=== PATIENT | female | born 1940 | race Caucasian/White ===

== ENCOUNTER 2019-09-16 20:27 | Emergency (ER) | payer MEDICARE, OTHER, SELFPAY ==
[2019-09-16 20:36] VITALS: BP 163/90; PULSE 74; RESP 18; TEMP 37.2; O2SAT 96; BMI 33.0
--- NOTE | 2019-09-16 20:43 | XRR_ITS ---
PROCEDURE INFORMATION: Exam: XR Chest, 1 View Exam date and time: 09/16/2019 9:19 PM Age: 79 years old Clinical indication: Cough; Chest pain TECHNIQUE: Imaging protocol: XR of the chest Views: 1 view. COMPARISON: CR Chest 2 views* [id number] 03/03/2019 3:25 PM FINDINGS: Lungs: There is right basilar airspace disease. Pleural space: No pleural effusion or pneumothorax. Heart/Mediastinum: The cardiac silhouette is not enlarged. The mediastinal contours are normal. Bones/joints: There are multilevel bridging osteophytes in the spine. XR/XR chest 1V portable [id number] IMPRESSION: Right basilar airspace disease. Consider pneumonia or aspiration pneumonitis.
--- NOTE | 2019-09-16 20:44 | ECG_ITS ---
Measurements Intervals Siren Rate: 62 P: 52 OK: 150 QRS: -34 QRSD: 128 T: 80 QT: 467 QTc: 476 SINUS RHYTHM LEFT AXIS DEVIATION [QRS AXIS < -30] LEFT BUNDLE BRANCH BLOCK [120+ ms QRS DURATION, 80+ ms Q/S IN V1/V2, 85+ ms R I/aVL/V5/V6] No previous ECG available for comparison Electronically Signed On 09-17-2019 10:02:09 CDT by Kirk Schrader M.D. [email or web address]
--- NOTE | 2019-09-16 20:48 | USR_ITS ---
PROCEDURE INFORMATION: Exam: US Duplex Bilateral Extracranial Arteries Exam date and time: 09/16/2019 9:40 PM Age: 79 years old Clinical indication: Left neck pain TECHNIQUE: Imaging protocol: Real-time Duplex ultrasound scan of the bilateral carotid and vertebral arteries combining matos scale, color Doppler and spectral waveform analysis. Bilateral exam. COMPARISON: No relevant prior studies available. FINDINGS: Right common carotid artery: PSV = 71.7 cm/sec. No occlusion or significant stenosis. Waveforms are normal. Right internal carotid artery: PSV = 84.6 cm/sec. No occlusion or significant stenosis. Waveforms are normal. Right ICA/CCA ratio: Within normal limits. Right external carotid artery: PSV = 92.6 cm/sec. No significant stenosis in the origin. Right vertebral artery: PSV = 43.6 cm/sec. Antegrade flow. Left common carotid artery: PSV = 72.7 cm/sec. No occlusion or significant stenosis. Waveforms are normal. Left internal carotid artery: PSV = 85.8 cm/sec. No occlusion or significant stenosis. Waveforms are normal. Left ICA/CCA ratio: Within normal limits. Left external carotid artery: PSV = 68.3 cm/sec. No significant stenosis in the origin. Left vertebral artery: PSV = 42.2 cm/sec. Antegrade flow. US/CV carotid duplex BI* [id number] IMPRESSION: No significant carotid arterial stenosis. REFERENCES: SRU CRITERIA. The degree of internal carotid artery stenosis is based on criteria defined by the Society of Radiologists in Ultrasound (SRU). Normal is no stenosis. Mild is less than 50% stenosis. Moderate is 50-69% stenosis. Severe is greater than 69% stenosis to near occlusion. Near occlusion is a markedly narrowed lumen. Total occlusion is no detectable patent lumen.
--- NOTE | 2019-09-16 20:56 | ED_ITS ---
HPI - General Adult General: Chief complaint: General Medical Stated complaint: diaphoresis Time Seen by Provider: 09/16/19 20:43 History of Present Illness: HPI narrative: Yareli is a nice 79-year-old female who comes in complaining of right ear and right neck pain. She describes the pain as sharp and intermittent lasting only a few seconds. Her ear is not some much pain as is occasional ringing. She is concerned that she may have earwax buildup in her ear. She denies any fever, headache, worsening with range of motion. Very importantly she denies any chest pain, shortness of breath, arm or heaviness or weakness. Patient states she is overall very healthy but was concerned about the arteries in her neck that is what prompted her to come to the [facility] for evaluation. Associated symptoms: Deny chest pain, confusion, diaphoresis, dyspnea, headache(s), malaise, nausea, rash, palpitations, syncope or vomiting Review of Systems General: Reports: other (negative unless marked) Const: Denies: fever, chills, body aches, fatigue, malaise or diaphoresis Eyes: Denies: change in vision or blurry vision ENMT: Reports: ear pain; Denies: throat pain, painful swallowing, hoarseness, ear discharge, Change in hearing or nasal discharge Card: Denies: chest pain, palpitations, irregular heart rhythm, syncope, pre- syncope, shortness of breath on exertion or shortness of breath when lying down Resp: Denies: shortness of breath, productive cough, non-productive cough, wheezing, coughing up blood or chest congestion GI: Denies: abdominal pain, nausea, vomiting, vomiting blood, coffee grounds in vomit, diarrhea, constipation, cramping, blood in stool or black tarry stool : Denies: flank pain, painful urination, urinary frequency, urinary urgency, decreased urine ouput, urinary incontinence or blood in urine Musc: Denies: neck pain, back pain, extremity pain, extremity swelling, joint pain, joint swelling, joint warmth or joint stiffness Skin/Breast: Denies: rash, skin tenderness or yellow skin Neuro: Denies: headache, numbness in extremities, weakness in extremities, changes in sensation, lack of coordination, difficulty walking, dizziness, vertigo or confusion Endo: Denies: excessive thirst, tired all the time, cold intolerance, excessive sweating, flushing or hot flashes Remy/Lymph: Denies: easy bruising, easy bleeding, petechiae or enlarged lymph nodes All/Imm: Denies: hives, throat swelling, tongue swelling, facial swelling or acute wheezing PFSH ED PFSH: Medical History (Updated 09/16/19 @ 22:49 by Ariella Lawson) Asthma Social History Smoking and tobacco status: never smoked Physical Exam Const: COMMON NORMALS: no apparent distress, oriented x3, no limitations, healthy appearing and well nourished EXAM LIMITATIONS: no altered mental st atus GENERAL APPEARANCE: cooperative, well kempt and well developed ORIENTATION/CONSCIOUSNESS: Yes awake HENMT: COMMON NORMALS: normocephalic, head/scalp atraumatic, hearing grossly normal bilaterally, external ears normal, EAC's normal, external nose normal and moist oral mucous membranes HEAD & SCALP: normal to inspection, normocephalic and atraumatic FACE & SINUS: normal facial exam and face symmetric NOSE: external nose normal and nares normal EXTERNAL EAR: Yes external ears normal EXTERNAL AUDITORY CANAL: EAC's normal MOUTH: oral and palatal mucosa normal and tongue normal Eye: COMMON NORMALS: PERRL, EOMs intact bilaterally, conjunctivae normal and no scleral icterus GENERAL EYE: normal appearance of both eyes and normal light reflex CONJUNCTIVA: Yes conjunctivae normal SCLERA: sclerae normal CORNEA: Yes corneas normal PUPIL: Yes PERRL DIRECT OPHTHALMOSCOPY: Yes normal light reflex Neck/C-Spine: COMMON NORMALS: full ROM, no lymphadenopathy, supple, no meningeal signs and no JVD GENERAL: Yes normal visual inspection and Yes trachea midline CERVICAL SPINE: Yes cervical ROM normal Chest: COMMONS NORMALS: inspection of chest normal and palpation of chest normal Resp: COMMON NORMALS: normal respiratory effort, no retractions, no use of accessory muscles and clear to auscultation bilaterally EFFORT & INSPECTION: Yes able to speak in complete sentences AUSCULTATION: clear to auscultation bilaterally Cardio: COMMON NORMALS: no JVD, regular rate, regular rhythm, S1 normal heart sound, S2 normal heart sound, no gallops, no clicks, no murmurs and no rub JUGULAR VENOUS DISTENTION: no JVD RATE: regular rate RHYTHM: regular rhythm HEART SOUNDS: S1 normal and S2 normal GI: COMMON NORMALS: soft to palpation, non-tender, no hepatosplenomegaly and no masses INSPECTION: Yes normal to inspection PALPATION: Yes soft and Yes no hepatosplenomegaly : COMMON NORMALS: Yes no CVA tenderness BLADDER/KIDNEY EXAM: Yes no CVA tenderness Back/Pelvis: COMMON NORMALS: no CVA tenderness, thoracic and lumbar spine normal to inspection, no thoracic nor lumbar tenderness and thoraco-lumbar ROM normal Extremity: COMMON NORMALS: normal to inspection, full ROM, normal capillary refill, no joint enlargement, no clubbing, cyanosis or edema and no calf tenderness Neuro: COMMON NORMALS: oriented x3, CN's II-XII intact bilaterally, moves all extremities, no focal motor deficits and no sensory deficits noted MENINGEAL SIGNS: Yes no meningeal signs Psych: COMMON NORMALS: mental status grossly normal, thought process normal, cooperative, affect normal, speech normal and activity/motor behavior normal APPEARANCE: Yes well kempt SPEECH: Yes normal speech THOUGHT PROCESS: normal thought process Skin: COMMON NORMALS: no rashes or lesions noted, skin turgor normal, no jaundice, no petechiae and no mottling GENERAL SKIN EXAM: no rashes or lesions noted and turgor normal Course Vital Signs: Vital signs: Vital Signs Temperature 99 F 09/16/19 20:36 Pulse Rate 68 09/16/19 22:55 Respiratory Rate 18 09/16/19 22:55 Blood Pressure 110/88 09/16/19 22:55 Pulse Oximetry 97 09/16/19 22:55 MDM - General Adult MDM Narrative: Medical decision making narrative: The patient declines any further evaluation and care. She specifically wanted an ultrasound of her neck after she googled her symptoms. Her ultrasound of her carotids is normal. Please see the formal report. I see no sign of acute coronary syndrome, aortic dissection, carotid dissection, pulmonary embolism or otherwise. The patient agrees to return should her symptoms change or worsen but at this time she is feeling better and requests discharge. The patient's chest x-ray does suggest a right lower lobe infiltrate although she has no cough or white count I will cover her empirically with Levaquin. She agrees to follow-up with Dr. Neely for recheck. Lab Data: Attestation: I reviewed the patient's lab results. Labs: Lab Results 09/16/19 09/16/1909/15/20 Range/Units 21:05 21:05 21:05 WBC 9.3 (4.0-10.0) 10^3/ uL RBC 4.20 (4.1-5.3) 10^6/u L Hgb 12.8 (11.5-15.3) g/dL Hct 39.4 (37.0-47.0) % MCV 93.8 (81-99) fL MCH 30.5 (28.0-34.0) pg MCHC 32.5 (30.0-36.0) g/dL RDW 13.9 (12.1-15.1) % Plt Count 168 (130-400) 10^3/c mm MPV 11.7 H (7.4-10.4) fL Neut % (Auto) 72.3 % Lymph % (Auto) 20.6 % [place] % (Auto) 4.8 % Eos % (Auto) 1.7 % Baso % (Auto) 0.4 % Neut # (Auto) 6.8 (1.8-7.7) 10^3/u L Lymph # (Auto) 1.9 (0.8-4.8) 10^3/u L [place] # (Auto) 0.5 (0.2-0.9) 10^3/u L Eos # (Auto) 0.2 (0.0-0.8) 10^3/u L Baso # (Auto) 0.0 (0.0-0.1) 10^3/u L Nucleated RBC % (a uto) 0 % Nucleated RBCs # 0.0 /100WBC Sodium 138 (136-145) mmol/L Potassium 4.3 (3.5-5.1) mmol/L Chloride 101 (98-107) mmol/L Carbon Dioxide 22 (22-29) mmol/L Anion Gap 19.3 H (5-19) BUN 13 (8-23) mg/dL Creatinine 1.0 H (0.5-0.9) mg/dL Glucose 123 H (65-115) mg/dL Calculated Osmolal ity 284 L (285-295) mOsm/k g Calcium 10.1 (8.5-10.5) mg/dL Magnesium 2.2 (1.7-2.3) mg/dL Total Bilirubin 0.6 (0.15-1.2) mg/dL AST 27 (0-32) U/L ALT 21 (0-33) U/L Alkaline Phosphata se 53 (35-105) IU/L Troponin T Baselin e 11 H (0-10) ng/mL Troponin T 120 Min uzma (0-10) ng/mL Delta Troponin T (0-10) ABS# Total Protein 8.3 (6.6-8.7) g/dL Albumin 5.3 H (3.5-5.2) g/dL Globulin 3.0 (1.3-4.6) g/dL TSH 2.68 (0.27-4.20) uIU/ mL Urine Color (Yellow) Urine Appearance (CLEAR) Urine pH (5-7) Ur Specific Gravit y (1.005-1.030) Urine Protein (Negative) Urine Glucose (UA) (Normal) Urine Ketones (Negative) Urine Blood (Negative) Urine Nitrate (Negative) Urine Bilirubin (NEGATIVE) Urine Urobilinogen (Negative) mg/dL Ur Leukocyte Latanya ase (Negative) Urine RBC (0-2) /hpf Urine WBC (0-5) /hpf Ur Squamous Epith Cells (0-5) Urine Bacteria (NONE) Urine Mucus Influenza Type A A g (Negative) Influenza Type B A g (Negative) 09/16/19 09/16/19 09/16/19 Range/Units 21:05 21:40 22:15 WBC (4.0-10.0) 10^3/ uL RBC (4.1-5.3) 10^6/u L Hgb (11.5-15.3) g/dL Hct (37.0-47.0) % MCV (81-99) fL MCH (28.0-34.0) pg MCHC (30.0-36.0) g/dL RDW (12.1-15.1) % Plt Count (130-400) 10^3/c mm MPV (7.4-10.4) fL Neut % (Auto) % Lymph % (Auto) % Concordia % (Auto) % Eos % (Auto) % Baso % (Auto) % Neut # (Auto) (1.8-7.7) 10^3/u L Lymph # (Auto) (0.8-4.8) 10^3/u L Concordia # (Auto) (0.2-0.9) 10^3/u L Eos # (Auto) (0.0-0.8) 10^3/u L Baso # (Auto) (0.0-0.1) 10^3/u L Nucleated RBC % (a uto) % Nucleated RBCs # /100WBC Sodium (136-145) mmol/L Potassium (3.5-5.1) mmol/L Chloride (98-107) mmol/L Carbon Dioxide (22-29) mmol/L Anion Gap (5-19) BUN (8-23) mg/dL Creatinine (0.5-0.9) mg/dL Glucose (65-115) mg/dL Calculated Osmolal ity (285-295) mOsm/k g Calcium (8.5-10.5) mg/dL Magnesium (1.7-2.3) mg/dL Total Bilirubin (0.15-1.2) mg/dL AST (0-32) U/L ALT (0-33) U/L Alkaline Phosphata se (35-105) IU/L Troponin T Baselin e (0-10) ng/mL Troponin T 120 Min uzma 11.81 H (0-10) ng/mL Delta Troponin T 0.81 (0-10) ABS# Total Protein (6.6-8.7) g/dL Albumin (3.5-5.2) g/dL Globulin (1.3-4.6) g/dL TSH (0.27-4.20) uIU/ mL Urine Color Yellow (Yellow) Urine Appearance Sl hazy (CLEAR) Urine pH 5 (5-7) Ur Specific Gravit y 1.020 (1.005-1.030) Urine Protein Neg (Negative) Urine Glucose (UA) Norm (Normal) Urine Ketones Negative (Negative) Urine Blood Neg (Negative) Urine Nitrate Negative (Negative) Urine Bilirubin Neg (NEGATIVE) Urine Urobilinogen Norm (Negative) mg/dL Ur Leukocyte Latanya ase Trace H (Negative) Urine RBC 0-4 H (0-2) /hpf Urine WBC 15-25 H (0-5) /hpf Ur Squamous Epith Cells 25-40 H (0-5) Urine Bacteria 1+ H (NONE) Urine Mucus 2+ Influenza Type A A g Negative (Negative) Influenza Type B A g Negative (Negative) Imaging Data^: CXR: My impression: Possible right lower lobe infiltrate. EKG Data^: EKG 1: Attestation: I personally reviewed and interpreted this EKG as follows: EKG interpretation date: 09/16/19 EKG interpretation time: 22:26 Interpretation: Normal sinus rhythm at 62 beats a minute, interventricular conduction delay. No old for comparison. Discharge Plan Discharge Patient Disposition: Home, Self-Care Clinical Impression: Discomfort of neck Pneumonia Qualifiers: Pneumonia type: due to unspecified organism Laterality: right Lung location: lower lobe of lung Qualified Code(s): J18.9 - Pneumonia, unspecified organism Discomfort of ear Qualifiers: Laterality: right Qualified Code(s): H92.01 - Otalgia, right ear Condition: Stable Prescriptions: New Levaquin 750 mg tablet 750 mg PO DAILY 7 Days RF: 0 No Action Tylenol 325 mg tablet 650 mg PO DAILY RF: 0 Zyrtec 10 mg tablet 10 mg PO DAILY RF: 0 Restoril 30 mg capsule 30 mg PO DAILY RF: 0 Discharge Orders: Discharge Order (Routine); Ordered 09/16/19 Ordered By: Ariella Lawson Referrals: Epifanio Neely MD [Family Provider] - 1-3 days Discharge Diet: Advance as tolerated Discharge Activity: Increase activity as tolerated Patient Instructions: Chest Pain (ED) Activity Restrictions/Additional Instructions: Please return to the ER immediately for any of the signs or symptoms listed on your discharge instruction sheets, worsening/changing of your symptoms, you are not getting better as quickly as expected, or for ANY other cause or concerns. Be certain to follow-up with Dr. Neely as soon as possible for reevaluation of your ear and neck. If you develop chest pain, shortness of breath, or have any other concerns please return to the ER immediately for recheck. Discharge Date/Time: 09/16/19 22:55 Coding Level of Care Code ED Rig Superintendent for Chg Fwd Exam Comprehensive
[2019-09-16 21:10] LABS: Basophils % 0.4 %; Eosinophils # 0.2 10^3/uL (0.0-0.8); Eosinophils % 1.7 %; Hematocrit 39.4 % (37.0-47.0); Hemoglobin 12.8 g/dL (11.5-15.3); Lymphocytes # 1.9 10^3/uL (0.8-4.8); Lymphocytes % 20.6 %; Mean Corpuscular HGB Conc 32.5 g/dL (30.0-36.0); Mean Corpuscular Hemoglobin 30.5 pg (28.0-34.0); Mean Corpuscular Volume 93.8 fL (81-99); Mean Platelet Volume 11.7 fL (7.4-10.4); Monocytes # 0.5 10^3/uL (0.2-0.9); Monocytes % 4.8 %; Neutrophils # 6.8 10^3/uL (1.8-7.7); Neutrophils % 72.3 %; Nucleated Red Blood Cells % 0 %; Platelet Count 168 10^3/cmm (130-400); Red Cell Distribution Width 13.9 % (12.1-15.1); White Blood Count 9.3 10^3/uL (4.0-10.0)
[2019-09-16 21:53] LABS: Troponin(5th) Baseline 11 ng/mL (0-10)
[2019-09-16 22:07] LABS: Alanine Aminotransferase 21 U/L (0-33); Albumin Level 5.3 g/dL (3.5-5.2); Alkaline Phosphatase 53 IU/L (35-105); Chloride 101 mmol/L (98-107); Potassium 4.3 mmol/L (3.5-5.1); Sodium 138 mmol/L (136-145)
[2019-09-16 22:23] LABS: Bacteria Urine 1+; Bilirubin Urine Neg (NEGATIVE); Blood Urine Neg (Negative); Glucose Urine UA Norm (Normal); Ketones Urine Negative (Negative); Leukocyte Esterase Urine Trace (Negative); Mucus Urine 2+; Nitrate Urine Negative (Negative); Protein Urine Neg (Negative); RBC Urine 0-4 /hpf (0-2); Squamous Epithelial Cell Urine 25-40 (0-5); Urine Appearance SL Hazy (CLEAR); Urine Color Yellow (Yellow); Urobilinogen Urine Norm (Negative); WBC Urine 15-25 /hpf (0-5); pH Urine 5 (5-7)
[2019-09-16 22:26] LABS: Anion Gap 19.3 (5-19); Blood Urea Nitrogen 13 mg/dL (8-23); Calcium 10.1 mg/dL (8.5-10.5); Carbon Dioxide 22 mmol/L (22-29); Creatinine Clr Calc Pharmacy 42.0923; Glucose 123 mg/dL (65-115); Magnesium 2.2 mg/dL (1.7-2.3); Osmolality Calculated 284 mOsm/kg (285-295); Total Bilirubin 0.6 mg/dL (0.15-1.2); Total Protein 8.3 g/dL (6.6-8.7)
[2019-09-16 22:27] LABS: Aspartate Amino Transferase 27 U/L (0-32)
[2019-09-16 22:33] LABS: Thyroid Stimulating Hormone 2.68 uIU/mL (0.27-4.20)
[2019-09-16 22:37] LABS: Troponin 5 2HR 11.81 ng/mL (0-10); Troponin 5 2HR Delta 0.81 ABS# (0-10)
[2019-09-16 22:48] LABS: Influenza A by IFA Negative (Negative); Influenza B by IFA Negative (Negative)
[2019-09-16] MEDS: levoFLOXacin 750 mg Tablet PO (22:53)
[2019-09-16 22:55] VITALS: BP 110/88; PULSE 68; RESP 18; O2SAT 97
== END 2019-09-16 22:55 | disposition home or self-care (01) ==
PROVIDERS: Emergency Provider Emergency Medicine; Family Provider Family Medicine
DX: J18.9 Pneumonia, unspecified organism (principal); H92.01 Otalgia, right ear; R07.9 Chest pain, unspecified; J45.909 Unspecified asthma, uncomplicated; H93.11 Tinnitus, right ear; M54.2 Cervicalgia
CPT/HCPCS: 12345; 71045; 80053; 81001; 83735; 84443; 84484; 85025; 87040; 87804; 93005; 93880; 99282; 99284; A9270

== ENCOUNTER → 2020-01-10 09:16 | Outpatient (BNVA) | payer MEDICARE, OTHER, SELFPAY | PROVIDERS: Family Provider Family Medicine; Visit Provider Dermatology | DX: L21.9 Seborrheic dermatitis, unspecified (principal); D18.01 Hemangioma of skin and subcutaneous tissue; L82.1 Other seborrheic keratosis; Z12.83 Encounter for screening for malignant neoplasm of skin | CPT/HCPCS: 99203 ==

== ENCOUNTER 2020-04-12 07:42 | Outpatient (CLI) | payer MEDICARE, OTHER, SELFPAY ==
--- NOTE | 2020-04-12 07:46 | MM_ITS ---
WS: [id number] Bilateral screening digital mammogram, 04/12/2020 Clinical Data: SCREENING Comparison: 03/24/2019, 11/26/2017, 12/23/2016, 05/24/2017, 03/17/2016, 02/21/2016, 10/28/2011, 10/10/2011, 09/04/2010, 08/22/2009, 08/14/2008, 04/21/2007. Findings: The breast parenchymal pattern shows glandular tissue No spiculated masses or clustered calcification s are seen. There are no secondary signs of carcinoma. There is a biopsy clip at the inferior aspect of the left breast. MM/[place] [id number] Impression: 1. Negative bilateral mammogram unchanged. 2. Recommend annual screening mammograms. BIRADS: 1-Negative FOLLOW UP: 1 Year Follow-up The CAD pattern checker was used.
== END 2020-04-12 07:43 | disposition home or self-care (01) ==
LOC: RADSHAW 07:45
PROVIDERS: PCP Family Medicine; Visit Provider Family Medicine
DX: Z12.31 Encounter for screening mammogram for malignant neoplasm of breast (principal)
CPT/HCPCS: 77067

== ENCOUNTER 2020-09-20 14:52 | Outpatient (CLI) | payer MEDICARE, OTHER, SELFPAY ==
--- NOTE | 2020-09-20 15:01 | US_ITS ---
WS: [id number] Bilateral renal ultrasound, 09/20/2020 Clinical Data: LEFT RENAL CYST Comparison: Renal ultrasound, 10/18/2018. Findings: The right kidney measures 10.8 cm x 5.8 cm x 5.5 cm and the left kidney is 8.3 cm x 4.5 cm x 5.1 cm. There is a large bilobed left renal complex cyst measuring 6.89 x 8.71 x 11.87 cm. This cyst is the s juan size and configuration as was noted two years ago. No right renal cysts are seen. No hydronephros is, hydroureter or renal calculi are noted. The abdominal aorta and inferior vena cava show no vascul ar abnormalities. The bladder was scanned and was not remarkable. US/US renal BI* [id number] Impression: 1. Large bilobed left renal cyst unchanged. 2. Negative right renal ultrasound.
== END 2020-09-20 14:53 | disposition home or self-care (01) ==
LOC: RAD 14:58
PROVIDERS: PCP Family Medicine; Visit Provider Family Medicine
DX: N28.1 Cyst of kidney, acquired (principal)
CPT/HCPCS: 76770

== ENCOUNTER 2021-03-28 11:03 | Outpatient (CLI) | payer MEDICARE, OTHER, SELFPAY ==
--- NOTE | 2021-03-28 11:14 | XR_ITS ---
WS: [id number] Left hip, AP and frog-leg views, AP pelvis, 03/28/2021 Clinical Data: LEFT HIP PAIN/ACUTE BACK PAIN Comparison: None. Findings: No fractures or dislocations are seen. The left hip joint is intact. There is a left acetabular lip. No left hip erosion, sclerosis, narrowing or cyst formation is seen. The right hip shows a small acet abular lip. The soft tissues are not remarkable. The adjacent pelvis is normal. The SI joints and pubic symphysis are not remarkable. XR/XR hip LT 2-3V wo/w pel* [id number] Impression: 1. 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 2. Negative pelvis and right hip. Tonnis classification: grade 1: sclerosis of femoral head and acetabulum or sli ght joint space narrowing or slight lipping at joint margins
--- NOTE | 2021-03-28 11:14 | XR_ITS ---
WS: [id number] Left knee, AP and lateral views, 03/28/2021 Clinical Data: L HIP PAIN/ACUTE BACK PAIN Comparison: AP views of both knees, 12/22/2005. Findings: There is medial joint compartment narrowing with a small spur of the medial tibial plateau. There is irregularity of the posterior left patella. No fractures or dislocations are noted. The soft tissues are normal. XR/XR knee LT 1-2V [id number] Impression: Minimal osteoarthritic changes of the medial joint compartment and posterior pa tella of the left knee. Kellgren-Pato Classification: grade 2 (minimal): definite osteophytes and p ossible joint space narrowing
--- NOTE | 2021-03-28 11:14 | XR_ITS ---
WS: [id number] Lumbar spine, 3 views, 03/28/2021 Clinical Data: L HIP PAIN/ACUTE BACK PAIN Comparison: None. Findings: No compression fractures or subluxation is seen. There is disc space narrowing at all levels. Osteoar thritic spurring is present from L1 through L5. The transverse processes and SI joints are normal. There is a levoscoliosis. There are clips in the right upper quadrant, cholecystectomy. There is calc ification of the wall of the abdominal aorta but no aneurysm. XR/XR lumbar spine 2-3V* [id number] Impression: 1. Degenerative disc narrowing and osteoarthritic spurring at all levels L1-L5. 2. Levoscoliosis.
== END 2021-03-28 11:04 | disposition home or self-care (01) ==
LOC: RAD 11:06
PROVIDERS: PCP Family Medicine; Visit Provider Family Medicine
DX: M41.86 Other forms of scoliosis, lumbar region (principal); M46.06 Spinal enthesopathy, lumbar region; M25.762 Osteophyte, left knee; M16.12 Unilateral primary osteoarthritis, left hip
CPT/HCPCS: 72100; 73502; 73560

== ENCOUNTER 2021-04-22 07:56 | Outpatient (CLI) | payer MEDICARE, OTHER, SELFPAY ==
--- NOTE | 2021-04-22 08:45 | MR_ITS ---
WS: [id number] MRI LUMBAR SPINE NONCONTRAST TECHNIQUE: Sagittal T1, T2 and STIR imaging. Axial T1 and T2 imaging. CLINICAL INFORMATION: SCIATICA COMPARISON: None. FINDINGS: Mild lumbar curve. No acute compression. Grade 1 anterolisthesis L4 on L5. Slight retrolisthesis L2 o n L3. Disc space narrowing worse at L2-3. L1-L2: Mild annular bulging. Spinal canal and foramen are patent. Mild facet arthropathy. L2-L3: Disc desiccation. Mild disc bulging with impingement on the right subarticular recess. Mild ce ntral canal stenosis. Moderate facet arthropathy. Mild right foraminal narrowing. Small subarticular disc extrusion in the right subarticular recess impinging the traversing right L3 nerve root. L3-L4: Mild disc bulging with mild to moderate central canal stenosis. Impingement traversing L4 nerv e roots bilaterally. Moderate facet arthropathy. Small bilateral foraminal protrusions with mild left greater than right foraminal narrowing. L4-L5: Mild disc bulging with osteophytic ridging. Slight anterolisthesis. Severe central canal steno sis with impingement on the traversing L5 nerve roots bilaterally. Moderate facet arthropathy. Ligame ntum flavum hypertrophy. Moderate bilateral foraminal narrowing impinges the exiting L4 nerve roots b ilaterally. L5-S1: Mild disc bulging and osteophytic ridging. Impingement traversing right greater than left S1 n erve roots. Advanced facet arthropathy. Grade 1 anterolisthesis. Mild bilateral foraminal narrowing. Partially visualized large left renal cyst measuring 7.1 x 7.6 cm. MR/MR lumbar spine wo con* [id number] IMPRESSION: 1. Mild lumbar curve. No acute compression. 2. Severe central canal stenosis L4-5 due to disc bulging with facet arthropat hy and ligamentum flavum flavum hypertrophy. Grade 1 anterolisthesis. 3. Moderate central canal stenosis L3-4. 4. Small right subarticular disc extrusion L2-L3 impinges the traversing right L3 nerve root in the subarticular recess. 5. Disc bulging L5-S1 impinges the traversing right greater than left S1 nerve roots. 6. Moderate bilateral L4-5 foraminal narrowing. 7. Mild to moderate right L5-S1 foraminal narrowing.
== END 2021-04-22 07:57 | disposition home or self-care (01) ==
PROVIDERS: PCP Family Medicine; Visit Provider Family Medicine
DX: M54.30 Sciatica, unspecified side (principal); M51.27 Other intervertebral disc displacement, lumbosacral region; M48.061 Spinal stenosis, lumbar region without neurogenic claudication; M51.26 Other intervertebral disc displacement, lumbar region
CPT/HCPCS: 72148

== ENCOUNTER → 2021-05-20 09:36 | Outpatient (BNVA) | payer MEDICARE, OTHER, SELFPAY | PROVIDERS: PCP Family Medicine; Referring Provider Physician Assistant; Visit Provider Anesthesiology Pain Medicine | DX: M48.062 Spinal stenosis, lumbar region with neurogenic claudication (principal); M43.16 Spondylolisthesis, lumbar region; M51.16 Intervertebral disc disorders with radiculopathy, lumbar region; M79.605 Pain in left leg; M25.552 Pain in left hip | CPT/HCPCS: 99205 ==

== ENCOUNTER → 2021-05-23 13:00 | Outpatient (BNVA) | payer MEDICARE, OTHER, SELFPAY | PROVIDERS: PCP Family Medicine; Visit Provider Anesthesiology Pain Medicine | DX: M48.062 Spinal stenosis, lumbar region with neurogenic claudication (principal); M51.16 Intervertebral disc disorders with radiculopathy, lumbar region; Z79.891 Long term (current) use of opiate analgesic | CPT/HCPCS: 64483; 64484; J1040; J1100; J3490 ==

== ENCOUNTER → 2021-06-12 12:39 | Outpatient (BNVA) | payer MEDICARE, OTHER, SELFPAY | PROVIDERS: PCP Family Medicine; Visit Provider Anesthesiology Pain Medicine | DX: M48.062 Spinal stenosis, lumbar region with neurogenic claudication (principal) | CPT/HCPCS: 64483; 64484; J1100; J3490 ==

== ENCOUNTER → 2021-09-19 09:07 | Outpatient (BNVA) | payer MEDICARE, OTHER, SELFPAY | PROVIDERS: PCP Family Medicine; Visit Provider Orthopaedic Surgery | DX: M48.062 Spinal stenosis, lumbar region with neurogenic claudication (principal) | CPT/HCPCS: 72120; 99214 ==

== ENCOUNTER 2021-10-11 07:44 | Day surgery (SDC) | payer MEDICARE, OTHER, SELFPAY ==
[2021-10-04 10:18] VITALS: BMI 33.0
--- NOTE | 2021-10-04 10:35 | ANES.PREANE2 ---
Pre-Anesthetic Assessment Height/Weight: Height 1.55 m Weight 79.379 kg Operation Date: 10/11/21 08:55 Proposed Procedures p Lumbar Spine Decompression L4/5 [id number](Not Applicable) - Basil Mckoy DO Familial anesthetic complications: None Social Alcohol (a glass of wine nightly) and No tobacco Exam alert, oriented x 3, clear to auscultation bilaterally and regular rate & rhythm Airway Mallampati: Class III Dentition: full Pulmonary Asthma (never had to have inhalers) chronic cough for 6 months, no shortness of breath - takes zyrtec everyday CV/HEM None reported able to achieve > 4 METs None reported Hepatic None reported GI None reported Metabolic None reported Musc/skel Lower Back Pain Neuropsych None reported Anesthetic Plan ASA status: 2 Anesthesia: General Risk of > 500 ml blood loss (7ml/kg in children): No Medications/Allergies Home Medications Medication Instructions Recorded Confirmed Last Taken Type cetirizine 10 mg tablet (Zyrtec) 10 mg PO DAILY 09/16/19 10/04/21 09/16/19 History temazepam 30 mg capsule (Restoril) 30 mg PO DAILY 09/16/19 10/04/21 09/16/19 History celecoxib 200 mg capsule (Celebrex) 200 mg PO DAILY 05/20/21 10/04/21 Unknown History Multi Vitamin 1 tab PO DAILY 10/04/21 10/04/21 Unknown History Allergies Allergy/AdvReac Type Severity Reaction Status Date / Time No Known Drug Allergies Allergy Unknown Verified 09/19/21 09:14 [facility] Anesthesia Medical History (Updated 10/04/21 @ 09:58 by Romelia Zuluaga LPN) Asthma Surgical History History of hysterectomy Family History Denies family history of Anesthesia complication Bleeding disorder Social History Smoking and tobacco status: never smoked Alcohol intake: current Alcohol intake frequency: 3 or more drinks per day Alcohol type: wine Lives independently: Yes History of recent travel: No Data Anesthesia Cardiac Studies: No Data to Display
[2021-10-11] VITALS (9 sets, daily range): BP systolic 137–163; BP diastolic 58–87; PULSE 59–74; RESP 15–18; TEMP 36.1–36.7; O2SAT 96–100
--- NOTE | 2021-10-11 | SCC_ITS ---
Procedure done: 1. Bilateral L4/5 Lmainectomy with partial facetectomies 8.6 seconds of fluoroscopic guidance, for a cumulative dose of 2.80 mGy, was provided to Dr. Mckoy by the radiology department. C-arm images of the lumbar spine were saved for the patient's permanent record. [facility]
--- NOTE | 2021-10-11 | XR_ITS ---
WS: [id number] Lumbar spine, C-arm fluoroscopy, 10/11/2021 Clinical Data: Lumbar stenosis with neurogenic claudication Comparison: None. Findings: Dr. Mckoy performed a lumbar decompression XR/XR lumbar spine 1V [id number] Impression: Lumbar decompression.
--- NOTE | 2021-10-11 08:06 | W.PM.OPSUD ---
Surgery/Procedure H&P Update DATE OF PROCEDURE: October 11, 2021 DATE H&P PERFORMED: 09/19/21 H&P UPDATE INFORMATION: I have reviewed H&P completed within last 30 days, I have examined patient prior to procedure and No changes to prior documentation PREOP DIAGNOSIS: Lumbar Radiculopathy PLANNED PROCEDURE: Operation Date: 10/11/21 08:55 Proposed Procedures p Lumbar Spine Decompression L4/5 54702(Not Applicable) - Basil Mckoy DO
[2021-10-11] MEDS: sodium chloride 0.9% 1,000 ML 30 ML IV (08:08)
--- NOTE | 2021-10-11 08:43 | P.ANESUD_ITS ---
Pre-Anesthetic Update Pre-Anesthetic Assessment: Date of Surgery/Procedure: 10/11/21 Preop Alivia gnosis: Lumbar Radiculopathy Proposed Procedure: Operation Date: 10/11/21 08:55 Proposed Procedures p Lumbar Spine Decompression L4/5 31380(Not Applicable) - Basil Mckoy, DO Any changes to Pre-Anesthetic Assessment?: No Last Intake: Intake Last Liquid Date 10/10/21 Last Liquid Time 22:00 Last Solid Date 10/10/21 Last Solid Time 22:00 Vitals: Temperature 98.1 F 10/11/21 07:50 Temperature Source Temporal Artery S can 10/11/21 07:50 Pulse Rate 74 10/11/21 07:50 Respiratory Rate 18 10/11/21 07:50 Blood Pressure 156/87 10/11/21 07:50 Blood Pressure Amber n 110 10/11/21 07:50 Pulse Oximetry 96 10/11/21 07:50 Oxygen Delivery Me thod 10/11/21 07:51 Exam: Pre-Anes Outpt Exam: alert, oriented x 3, clear to auscultation bilaterally and regular rate & rhythm Cardiac Studies: No Data to Display
--- NOTE | 2021-10-11 10:03 | PM.OP ---
Operative Report Date of procedure: October 11, 2021 Pre-op diagnosis: Preop Diagnosis Lumbar Radiculopathy Post-op diagnosis: same Procedure done: 1. Bilateral L4/5 Lmainectomy with partial facetectomies Surgeon: Basil Mckoy Estimated blood loss (mL): 5 Procedure: 1. Bilateral L4/5 Lmainectomy with partial facetectomies Patient is brought to the operative suite. After undergoing anesthesia they are placed in the prone position. All areas of impingement are well padded. Patient is then prepped and draped in the normal sterile fashion. A skin incision is made over the L4/5 level. This is confirmed under c-arm guidance. A series of dilators are passed and the tubular retractor is docked on the L4 lamina. A bovie is used to clear the soft tissue off the lamina and the L 4/5 facet joint. A high speed dottie is then used to perform the laminectomy and take down the medial aspect of the L 4/5 facet joint. A kerrison rongeure was then used to take down the remaining lamina and smooth the edged of the laminectomy up to the point where the ligamentum flavum attaches. Attention was then brought to the medial aspect of the facet joint. The remaining medial aspect of the superior and inferior aspect of the facet joint were taken down with the kerrison from the pedicle of L4 to L 5. The facet joint had significant hypertrophy. Attention was then brought to the Ligamentum Flavum. The ligament was taken down from the lamina of L4 to L5 and out medially to the remaining facet joint. The ligament was thick. The dura was then exposed. The dura was in good repair. The L4 nerve was then traced with a curette out the L4/5 foramen and found to be adequately decompressed. The L5 nerve was traced with a curette around the L5 pedicle. The lateral recess was opened with a kerrison helping to further decompress the L5 nerve. The tubular retractor was then tilted to the contralateral side. The bovie was used to take down the soft tissue on the spinous process. The high speed dottie was used to take down the spinous process and then the contralateral lamina of L4. The kerrison rongeur was used to take down the remaining lamina to the point where the ligamentum flavum attached and the ligamentum flavum was taken down from L4 to L5. The kerrison rongeur was then used to reach across and take down the medial aspect of the contralateral L4/5 facet joint.The currete was used to trace the contralateral L4 nerve out the L4/5 foramen to make sure it was decompressed adequatesly and the L5 was traced around the L5 pedicle. The lateral recess was opened further with the kerrison to ensure the L5 is adequately decompressed. Wound is then irrigated copiously with saline and surgiflo is used to stop any bleeding. The tubular retractor is removed and the wound is closed with vicryl and monocryl suture. Glue is then used to protect the wound. A sterile dressing is then placed. Patient was then placed in the supine position and transferred to the PACU in stable condition.
--- NOTE | 2021-10-11 10:05 | SUR.PHASEI ---
0955 rolled pt over to assess back dsg and linens wet with urine,line changed and hygiene given
[2021-10-11] MEDS: HYDROcodone-acetaminophen 5-325 mg Tablet 1 TAB PO (11:18)
--- NOTE | 2021-10-11 11:32 | ANE.PACU2 ---
Inpatient post-anesthesia follow up: Airway intact: Yes Vital signs: Temperature 97.0 F Pulse Rate 61 Respiratory Rate 16 Blood Pressure 163/65 Pulse Oximetry 97 Oxygen Delivery Me thod Room Air Oxygen Flow Rate 8.0 Fraction of Inspir ed Oxygen Hydration adequate: Yes Nausea and vomiting: No Pain level: 3 Mental status: Baseline
== END 2021-10-11 10:54 | disposition home or self-care (01) ==
PROVIDERS: PCP Family Medicine; Visit Provider Orthopaedic Surgery
PROC: (CPT 63005; principal; 2021-10-11 08:45)
DX: M48.062 Spinal stenosis, lumbar region with neurogenic claudication (principal)
CPT/HCPCS: 63047; 72020; 76000; J0690; J1100; J1200; J2405; J2704; J2710; J3010; J3490; J7030

== ENCOUNTER → 2021-10-24 14:37 | Outpatient (BNVA) | payer MEDICARE, OTHER, SELFPAY | PROVIDERS: PCP Family Medicine; Visit Provider Orthopaedic Surgery | DX: Z47.89 Encounter for other orthopedic aftercare (principal); Z98.890 Other specified postprocedural states | CPT/HCPCS: 99024 ==

== ENCOUNTER → 2021-11-21 14:46 | Outpatient (BNVA) | payer MEDICARE, SELFPAY | PROVIDERS: PCP Family Medicine; Visit Provider Orthopaedic Surgery | DX: Z98.890 Other specified postprocedural states (principal); Z47.89 Encounter for other orthopedic aftercare; R74.8 Abnormal levels of other serum enzymes; E78.5 Hyperlipidemia, unspecified | CPT/HCPCS: 80053; 80061; 83690; 85025; 99024 ==

== ENCOUNTER 2021-11-26 14:57 | Outpatient (CLI) | payer MEDICARE, OTHER, SELFPAY ==
--- NOTE | 2021-11-26 15:13 | US_ITS ---
WS: [email or web address] RENAL ULTRASOUND HISTORY: L RENAL CYST COMPARISON: 09/20/2020 TECHNIQUE: 2-D and color Doppler imaging of the kidney submitted. Right kidney: 9.9 cm x 5.5 cm x 4.8 cm. Normal echogenicity with no hydronephrosis or mass. Left kidney: 10.3 cm x 6.2 cm x 6.5 cm. Normal size and echogenicity. Lobulated cystic mass from the lower pole. This may be 2 adjacent cysts or a large lobulated cyst. The entire complex measures 7.4 x 7.2 x 12.4 cm. Similar in appearance to the prior study from 09/20/2020. Aorta: Normal. Urinary Bladder: Normal distention. US/US renal BI* [id number] IMPRESSION: 1. No hydronephrosis or solid mass. 2. Large lobulated cyst versus 2 adjacent cysts lower pole LEFT kidney is stab le.
== END 2021-11-26 14:58 | disposition home or self-care (01) ==
PROVIDERS: PCP Family Medicine; Visit Provider Family Medicine
DX: N28.1 Cyst of kidney, acquired (principal)
CPT/HCPCS: 76770

== ENCOUNTER → 2022-01-07 07:39 | Outpatient (BNVA) | payer MEDICARE, OTHER, SELFPAY | PROVIDERS: PCP Family Medicine; Visit Provider Orthopaedic Surgery | DX: Z47.89 Encounter for other orthopedic aftercare (principal); Z98.890 Other specified postprocedural states | CPT/HCPCS: 99024 ==

== ENCOUNTER → 2022-04-08 08:34 | Outpatient (BNVA) | payer MEDICARE, OTHER, SELFPAY | PROVIDERS: PCP Family Medicine; Visit Provider Orthopaedic Surgery | DX: M51.16 Intervertebral disc disorders with radiculopathy, lumbar region (principal) | CPT/HCPCS: 99213 ==

== ENCOUNTER 2022-12-08 16:30 | Outpatient (CLI) | payer MEDICARE, OTHER, SELFPAY ==
--- NOTE | 2022-12-08 16:43 | XRR_ITS ---
PROCEDURE INFORMATION: Exam: XR Chest Exam date and time: 12/08/2022 4:49 PM Age: 82 years old Clinical indication: Patient HX: Cough for 1 month TECHNIQUE: Imaging protocol: Radiologic exam of the chest. Views: 2 views. COMPARISON: CR XR chest 1V portable [id number] 09/16/2019 8:59 PM FINDINGS: Lungs: Interval improvement right lung base from prior exam. No focal infiltrate or consolidation. Pleural spaces: Unremarkable. No pleural effusion. No pneumothorax. Heart/Mediastinum: Unremarkable. No cardiomegaly. Bones/joints: Visualized osseous structures show no acute abnormality. XR/XR chest 2V* [id number] IMPRESSION: No acute cardiopulmonary abnormality.
== END 2022-12-08 16:31 | disposition home or self-care (01) ==
PROVIDERS: PCP Family Medicine; Visit Provider Family Medicine
DX: R05.9 Cough, unspecified (principal)
CPT/HCPCS: 71046

== ENCOUNTER 2022-12-26 10:25 | Outpatient (CLI) | payer MEDICARE, OTHER, SELFPAY ==
--- NOTE | 2022-12-26 10:43 | MM_ITS ---
WS: [email or web address] VIEWS: MLO and CC views both breasts. 3D digital tomosynthesis is also included in this exam. Comparison made with prior exam of 02/21/2016, 09/22/2016, 11/26/2017, 03/24/2019, 04/12/2020.. Findings: There was no sign of mass, architectural distortion or suspicious calcification in either breast. Th ere are scattered areas of fibroglandular density MM/[place] [id number] Impression: BI-RADS: 2-Benign finding. FOLLOW-UP: 1 Year Follow-up This mammogram was also analyzed by the Computer Aided Detection System R2 Imag e Cath Lab Radiological Technologist.
== END 2022-12-26 10:26 | disposition home or self-care (01) ==
PROVIDERS: PCP Family Medicine; Visit Provider Family Medicine
DX: Z12.31 Encounter for screening mammogram for malignant neoplasm of breast (principal)
CPT/HCPCS: 77063; 77067

== ENCOUNTER 2023-05-14 09:16 | Outpatient (CLI) | payer MEDICARE, OTHER, SELFPAY ==
--- NOTE | 2023-05-14 09:30 | US_ITS ---
WS: [email or web address] RENAL ULTRASOUND HISTORY: renal cyst COMPARISON: 11/26/2021 TECHNIQUE: 2-D and color Doppler imaging of the kidney submitted. Right kidney: 9.8 cm x 5.6 cm x 6.0 cm. Cortex: 1.1 cm Normal echogenicity with no hydronephrosis or mass. Left kidney: 8.3 cm x 3.9 cm x 4.9 cm. Cortex: 1.0 cm Normal echogenicity with no hydronephrosis or mass. There is an exophytic cyst from the lower pole of the LEFT kidney kidney. This is a large cyst which has been previously described. Cyst measures at l east 8.4 x 8.8 x 6.3 cm. Aorta: Normal. Urinary Bladder: Normal distention. IMPRESSION: 1. No hydronephrosis. 2. Large renal cyst inferior pole LEFT kidney.
== END 2023-05-14 09:17 | disposition home or self-care (01) ==
LOC: RAD 09:16
PROVIDERS: PCP Family Medicine; Visit Provider Family Medicine
DX: N28.1 Cyst of kidney, acquired (principal)
CPT/HCPCS: 76770

== ENCOUNTER → 2023-09-08 14:35 | Outpatient (BNVA) | payer MEDICARE, OTHER, SELFPAY | PROVIDERS: PCP Family Medicine; Visit Provider Dermatology | DX: L82.1 Other seborrheic keratosis (principal); D18.01 Hemangioma of skin and subcutaneous tissue; D17.22 Benign lipomatous neoplasm of skin and subcutaneous tissue of left arm; L81.4 Other melanin hyperpigmentation; L21.8 Other seborrheic dermatitis | CPT/HCPCS: 99203 ==

== ENCOUNTER → 2024-02-04 09:39 | Outpatient (BNVA) | payer MEDICARE, OTHER, SELFPAY | PROVIDERS: PCP Family Medicine; Visit Provider Clinical Nurse Specialist Adult Health | DX: J20.6 Acute bronchitis due to rhinovirus (principal) | CPT/HCPCS: 87426 ==

== ENCOUNTER → 2024-03-31 09:34 | Outpatient (BNVA) | payer MEDICARE, OTHER, SELFPAY | PROVIDERS: PCP Family Medicine; Visit Provider Nurse Practitioner Family | DX: B35.1 Tinea unguium (principal); B35.3 Tinea pedis | CPT/HCPCS: 99214 ==

== ENCOUNTER → 2024-09-13 13:24 | Outpatient (BNVA) | payer MEDICARE, OTHER, SELFPAY | PROVIDERS: PCP Family Medicine; Visit Provider Physician Assistant | DX: G56.03 Carpal tunnel syndrome, bilateral upper limbs (principal) | CPT/HCPCS: 99203 ==

== ENCOUNTER → 2024-09-15 07:56 | Outpatient (BNVA) | payer MEDICARE, OTHER, SELFPAY | PROVIDERS: PCP Family Medicine; Visit Provider Family Medicine | DX: N28.1 Cyst of kidney, acquired (principal); G62.9 Polyneuropathy, unspecified; Z13.6 Encounter for screening for cardiovascular disorders; Z00.00 Encounter for general adult medical examination without abnormal findings; M17.12 Unilateral primary osteoarthritis, left knee | CPT/HCPCS: 80053; 80061; 84443; 85025 ==

== ENCOUNTER 2024-09-21 08:13 | Outpatient (CLI) | payer MEDICARE, OTHER, SELFPAY ==
--- NOTE | 2024-09-21 08:15 | US_ITS ---
WS: [email or web address] RENAL ULTRASOUND HISTORY: f/u on cyst COMPARISON: 05/14/2023, 11/26/2021, CT 04/19/2018 TECHNIQUE: 2-D and color Doppler imaging of the kidney submitted. Right kidney: 9.3 cm x 4.9 cm x 5.3 cm. Cortex: 1.0 cm Normal echogenicity with no hydronephrosis or mass. Left kidney: 10.6 cm x 4.1 cm x 5.4 cm. Cortex: 1.1 cm Normal size kidney. Reidentified is a septated cystic mass associated with the LEFT kidney. The entire length of the cyst is 13.0 cm which has increased since 2018. The largest cystic component measures 8.2 x 5.8 x 8.2 cm which is very similar to the prior study. No change in the slight nodularity along the septation the 2 cyst. No renal obstruction. Mild dilatation of the upper pole calyx of the LEFT kidney. On the prior CT this calyx appears to communicate with the cyst. Aorta: Normal. Urinary Bladder: Normal distention. US/US renal BI* [id number] IMPRESSION: 1. Large lobulated cystic mass associated with the LEFT kidney. There are 2 cy stic components which have not changed significantly in size over several prior exams. 2. No hydronephrosis. No solid mass.
== END 2024-09-21 08:14 | disposition home or self-care (01) ==
LOC: RAD 08:14
PROVIDERS: PCP Family Medicine; Visit Provider Family Medicine
DX: N28.1 Cyst of kidney, acquired (principal); N28.89 Other specified disorders of kidney and ureter
CPT/HCPCS: 76770

== ENCOUNTER → 2024-09-22 08:10 | Outpatient (BNVA) | payer MEDICARE, OTHER, SELFPAY | PROVIDERS: PCP Family Medicine; Visit Provider Dermatology | DX: L82.1 Other seborrheic keratosis (principal); D22.5 Melanocytic nevi of trunk; B35.1 Tinea unguium; L57.0 Actinic keratosis | CPT/HCPCS: 17000; 99213 ==

== ENCOUNTER 2024-12-30 10:33 | Outpatient (CLI) | payer MEDICARE, OTHER, SELFPAY ==
--- NOTE | 2024-12-30 10:45 | CT_ITS ---
WS: [email or web address] CT chest w con* [id number] HISTORY: chronic cough TECHNIQUE: Axial imaging performed through the thorax. Coronal and sagittal reformats are submitted. All CT scans at [facility] use at least one of these dose optimization techniques: automated exposure control; mA and/or kV adjustment per patient size (includes targeted exams where dose is matched to clinical indication); or iterative reconstruction. CONTRAST: Omnipaque 350; 100 mL IV. DLP: 354.31 mGy.cm COMPARISON: None available. Lungs and central airway: Very small RIGHT perifissural nodules. There is a calcified granuloma in the superior segment RIGHT lower lobe. No pneumonia. Pleura: No pleural effusion. Heart and pericardium: Normal size heart with no pericardial effusion. Mediastinum and carole: No mediastinum or hilar adenopathy. Vessels: Mild atherosclerosis aorta. Normal size thoracic aorta. Normal size pulmonary artery. Chest wall and lower neck: No soft tissue masses. Upper abdomen: Small hiatal hernia. Splenic granulomata. Prior cholecystectomy. Partially visualized LEFT parapelvic cysts. Osseous structures: Moderate hypertrophic osteophytes along the midthoracic spine. CT/CT chest w con* [id number] IMPRESSION: 1. No pneumonia. Normally aerated lungs. 2. Benign right-sided perifissural nodules. 3. Normal size heart. 4. Prior cholecystectomy.
[2024-12-30] MEDS: iohexol 350 mg/mL 500 mL Btl (per mL) IV (10:52)
[2024-12-30 11:03] LABS: Blood Urea Nitrogen 19 mg/dL (8-23)
== END 2024-12-30 10:34 | disposition home or self-care (01) ==
LOC: RAD 10:34
PROVIDERS: PCP Family Medicine; Visit Provider Family Medicine
DX: R05.3 Chronic cough (principal); R91.8 Other nonspecific abnormal finding of lung field
CPT/HCPCS: 71260; 82565; 84520

== ENCOUNTER → 2025-02-17 17:24 | Outpatient (BNVA) | payer MEDICARE, OTHER, SELFPAY | PROVIDERS: PCP Family Medicine; Visit Provider Emergency Medicine | DX: M75.101 Unspecified rotator cuff tear or rupture of right shoulder, not specified as traumatic (principal); S49.91XA Unspecified injury of right shoulder and upper arm, initial encounter; W19.XXXA Unspecified fall, initial encounter | CPT/HCPCS: 73030 ==

== ENCOUNTER → 2025-03-02 09:50 | Outpatient (BNVA) | payer MEDICARE, OTHER, SELFPAY | PROVIDERS: PCP Family Medicine; Visit Provider Family Medicine | DX: R25.2 Cramp and spasm (principal) | CPT/HCPCS: 83735 ==

== ENCOUNTER 2025-04-11 13:27 | Outpatient (CLI) | payer MEDICARE, OTHER, SELFPAY ==
--- NOTE | 2025-04-11 13:30 | US_ITS ---
WS: [email or web address] RENAL ULTRASOUND HISTORY: more back pain/ fu on cyst. COMPARISON: 09/21/2024, 05/14/2023 TECHNIQUE: 2-D and color Doppler imaging of the kidney submitted. Right kidney: 9.4 cm x 4.6 cm x 7.4 cm. Cortex: 1.0 cm Normal size kidney with mild cortical thinning. Left kidney: 8.1 cm x 3.8 cm x 5.2 cm. Cortex: 1.1 cm Normal size kidney. Kidneys measuring slightly smaller than on the prior study. No obstruction. No cortical thinning. Reidentified is a large lobulated cystic mass or 2 separate cysts by thin wall associated with the LEFT kidney. Largest component with a few small thin septations measures 7.6 x 8.8 x 6.1 cm. The smaller cyst measures 6.2 x 1.8 x 4.4 cm. No change in size. No solid component. Aorta: Mild atherosclerosis. Urinary Bladder: Nondistended bladder. US/US renal BI* [id number] IMPRESSION: 1. Stable lobulated cyst or 2 separate cysts by thin wall associated with the LEFT kidney. Stable over multiple prior exams. 2. Negative RIGHT kidney. No obstruction or mass.
== END 2025-04-11 13:28 | disposition home or self-care (01) ==
LOC: RAD 13:29
PROVIDERS: PCP Family Medicine; Visit Provider Family Medicine
DX: Q61.02 Congenital multiple renal cysts (principal)
CPT/HCPCS: 76770